=== PATIENT | male | born 1965 | race Caucasian/White ===

== ENCOUNTER 2021-06-12 19:58 | Inpatient (IN) | payer OTHER ==
[~2021-06-12] VITALS: Ht 175.3 cm; Wt 83.0 kg
--- NOTE | 2021-06-12 21:20 | NUR ---
c/o lt sided abd pain x 3am, denies n/v. patient in bed 11 on monitor and pox, awaiting md alegre. patient is ambulatory with non labored breathing.
--- NOTE | 2021-06-12 21:23 | NUR ---
URINE COLLECTED AND SENT TO LAB
--- NOTE | 2021-06-12 21:41 | NUR ---
RAC #20G S/L; PATENT AND INTACT. BLOOD COLLECTED AND SENT TO LAB
[2021-06-12 22:01] LABS: BASOPHILS # (AUTO) 0.1 K/uL (0.0-0.2); BASOPHILS % (AUTO) 0.4 % (0.0-2.0); EOSINOPHILS % (AUTO) 0.2 % (0.0-6.0); HEMATOCRIT 45 % (39-51); HEMOGLOBIN 15.2 g/dL (13.5-17.5); LYMPHOCYTES # (AUTO) 2.5 K/uL (0.8-4.8); LYMPHOCYTES % (AUTO) 11.7 % (20.0-44.0); MEAN CORPUSCULAR HGB CONC 34 g/dl (31.0-36.0); MEAN CORPUSCULAR VOLUME 87 fL (80-96); MONOCYTES # (AUTO) 2.4 K/uL (0.1-1.30); MONOCYTES % (AUTO) 11.1 % (2.0-12.0); NEUTROPHILS # (AUTO) 16.3 K/uL (1.8-8.9); NEUTROPHILS % (AUTO) 76.6 % (43.0-81.0); PLATELET COUNT (AUTO) 507 K/uL (150-450); RED BLOOD CELL COUNT(AUTO) 5.12 MIL/uL (4.5-6.0); WHITE BLOOD COUNT (AUTO) 21.3 K/uL (4.3-11.0)
[2021-06-12 22:10] LABS: CALCIUM, SERUM 9.6 mg/dL (8.5-10.1); CREATININE 1.8 mg/dL (0.6-1.3); POTASSIUM 3.6 mmol/L (3.5-5.1)
[2021-06-12 22:16] LABS: ALBUMIN 4.3 g/dL (3.4-5.0); BILIRUBIN,DIRECT 0.1 mg/dL (0.0-0.2); BILIRUBIN,TOTAL 0.7 mg/dL (0.2-1.0); TOTAL PROTEIN, SERUM 8.4 g/dL (6.4-8.2)
[2021-06-12 22:25] LABS: BILIRUBIN,URINE SMALL (NEGATIVE); COLOR,URINE YELLOW (YELLOW); LEUKOCYTE ESTERASE ,URINE NEGATIVE (NEGATIVE); NITRITE, URINE NEGATIVE (NEGATIVE); PROTEIN,URINE 30 mg/dl (NEGATIVE); UGLUCOSE NEGATIVE (NEGATIVE); UROBILINOGEN,URINE 0.2 EU/dL (0.2)
[2021-06-12] MEDS ORDERED: HYDROMORPHONE 1 MG/1 ML DISP.SYRIN ONE (22:27)
[2021-06-12] MEDS ORDERED: ONDANSETRON HCL/PF 4 MG/2 ML VIAL ONE (22:27)
[2021-06-12] MEDS ORDERED: HYDROMORPHONE 1 MG/1 ML DISP.SYRIN IV ONE (22:30)
[2021-06-12] MEDS ORDERED: ONDANSETRON HCL/PF - ER 4 MG/2 ML VIAL IV ONE (22:30)
[2021-06-12 22:46] LABS: RBC,URINE 0-2 /HPF (0-2)
[2021-06-12 22:47] LABS: BACTERIA,URINE Few /HPF (None Seen); MUCUS,URINE Many /LPF (None Seen); SQUAMOUS EPITHELIAL CELL,UR Few /HPF (None Seen)
--- NOTE | 2021-06-12 23:57 | NUR ---
COVID ANTIGEN SWAB COLLECTED AND SENT TO LAB
[2021-06-13] MEDS ORDERED: KETOROLAC TROMETHAMINE INJ 30 MG/ML VIAL IV ONE
--- NOTE | 2021-06-13 00:05 | NUR ---
CLINICALS RELAYED VERBALLY TO SKEIN INSPECTOR MIKEY.
[2021-06-13] MEDS ORDERED: KETOROLAC TROMETHAMINE INJ 30 MG/ML VIAL ONE (00:13)
[2021-06-13] MEDS ORDERED: ACETAMINOPHEN 325 MG TABLET PO PRN (00:30)
[2021-06-13] MEDS ORDERED: MAG HYDROX/AL HYDROX/SIMETH 30 ML UDC PO PRN (00:30)
[2021-06-13] MEDS ORDERED: LABETALOL 20 MG/4 ML VIAL IV PRN (00:30)
[2021-06-13] MEDS ORDERED: ONDANSETRON HCL/PF 4 MG/2 ML VIAL IVP PRN (00:30)
[2021-06-13] MEDS ORDERED: TAMSULOSIN 0.4 MG CAP.SR.24H PO ONE (00:30)
[2021-06-13] MEDS ORDERED: MORPHINE SULFATE INJ 2 MG/ML DISP.SYRIN IV PRN (00:30)
--- NOTE | 2021-06-13 01:44 | NUR ---
REPORT GIVEN TO KEN Stout RN FOR SHELBY
[2021-06-13] MEDS ORDERED: CEFEPIME 2 GM in IV D5W 100 ML IV ONE (02:00)
[2021-06-13] MEDS ORDERED: VANCOMYCIN 1 GM VIAL ONE (02:36)
[2021-06-13] MEDS ORDERED: TAMSULOSIN 0.4 MG CAP.SR.24H ONE (02:37)
[2021-06-13] MEDS: VANCOMYCIN 1 GM in IV D5W 250ml IV ONE ×2 (02:43→02:45)
--- NOTE | 2021-06-13 02:50 | NUR ---
PT TRANSFERRED TO 3W VIA ACLS PROTOCOL. VSS. ALL BELONGINGS WITH PT.
[2021-06-13 03:20] VITALS: BP 107/70
--- NOTE | 2021-06-13 03:20 | NUR ---
MS RN ADMITTING NOTES RECEIVED FROM ER VIA STRETCHER THIS MALE PATIENT WITH C/C OF NAUSEA AND VOMITING. PATIENT IS AWAKE, ALERT AND ORIENTED X 4, AMBULATORY. BREATHING IS EVEN AND NONLABORED. NO SIGNS AND SYMPTOMS OF RESPIRATORY DISTRESS. DENIES ANY PAIN, DISCOMFORT, NAUSEA AND VOMITING OF THIS TIME. ON ROOM AIR, WELL TOLERATED. WITH IV ACCESS ON RIGHT AC G#20; INTACT, PATENT AND SALINE LOCKED. SKIN CHECKED DONE; INTACT. INITIAL VS FOLLOWS: BP-107/70 MM HG, IA-70 BPM, RR-20 BREATHS PER MINUTE, TEMP- 98.9 DEGREES FAHRENHEIT, O2 SATURATION 93%. ABLE TO MAKE NEEDS KNOWN. ORIENTED TO THE ROOM AND UNIT. SAFETY MEASURES IMPLEMENTED: CALL LUNDY AND TABLE WITHIN EASY REACH, BED IN LOWEST LOCKED POSITION, SIDE RAILS UP X 2. WILL CONTINUE TO MONITOR
[2021-06-13 03:30] VITALS: BP 107/70
[2021-06-13] MEDS: IV NS 0.9% 1,000 ML IV SCH ×3 (03:51→16:10)
--- NOTE | 2021-06-13 07:00 | NUR ---
MS RN CLOSING NOTES PATIENT IS AWAKE, ALERT AND ORIENTED X 4. BREATHING IS EVEN AND NONLABORED. NO SIGNS AND SYMPTOMS OF RESPIRATORY DISTRESS. DENIES ANY PAIN, DISCOMFORT, NAUSEA AND VOMITING OF THIS MOMENT. ON ROOM AIR, WELL TOLERATED. WITH IV ACCESS ON RIGHT AC G#20 INFUSING WITH NS 1L AT 12 ML/HR; INTACT AND PATENT. NEEDS ATTENDED. SAFETY MEASURES IN PLACED: CALL LUNDY AND TABLE WITHIN EASY REACH, BED IN LOWEST LOCKED POSITION, SIDE RAILS UP X 2. ENDORSED TO MORNING SHIFT FOR CONTINUITY OF CARE.
--- NOTE | 2021-06-13 07:28 | NUR ---
MS RN OPENING NOTES RECEIVED PATIENT IN BED, AWAKE, A/O X4. PATIENT ON ROOM AIR; BREATHING EVEN AND UNLABORED. NO S/SX OF DISTRESS NOTED. NO COMPLAINS OF ACUTE PAIN AT THIS TIME. IV ACCESS ON RAC G # 20 WITH NS @125 MLS/HR. SAFETY PRECAUTIONS IN PLACE; BED IN LOW POSITION AND LOCKED, RAILS UP X2, CALL LIGHT WITHIN REACH. WILL CONTINUE TO MONITOR PATIENT.
[2021-06-13] MEDS: CEFEPIME 2 GM in IV D5W 100 ML IV SCH ×2 (07:47→20:18)
[2021-06-13] MEDS: HEPARIN SODIUM, PORCINE 5000 UNITS/1 ML VIAL SQ SCH ×2 (08:35→20:16)
[2021-06-13] MEDS ORDERED: VANCOMYCIN 1 GM in IV D5W 250 ML IV SCH (09:00)
--- NOTE | 2021-06-13 12:10 | NUR ---
MS RN NOTES PATIENT COMPLAINING OF PAIN 9 OUT OF 10 IN LEFT ABDOMINAL AND LEFT FLANK PAIN; REQUESTING PRN MEDICATION. PRN MORPHINE 2MG/1ML ADMINISTERED. WILL REASSESS.
[2021-06-13] MEDS: HYDROMORPHONE 1 MG/1 ML DISP.SYRIN IV PRN ×2 (14:46→19:59)
[2021-06-13] MEDS: VANCOMYCIN HCL 0.75 GM in IV D5W 250 ML IV SCH (14:48)
--- NOTE | 2021-06-13 14:53 | NUR ---
MS RN NOTES PATIENT COMPLAINING OF PAIN 9 OUT OF 10 IN LEFT ABDOMINAL AND LEFT FLANK PAIN; REQUESTING PRN MEDICATION. PRN DILAUDID ADMINISTERED PER MD ORDER.
--- NOTE | 2021-06-13 19:12 | NUR ---
MS RN CLOSING NOTES PATIENT REMAINS IN BED, AWAKE, A/O X4. PATIENT ON ROOM AIR; BREATHING EVEN AND UNLABORED. NO S/SX OF DISTRESS NOTED DURING THE DAY. PAIN TREATED WITH PRN PAIN MEDICATION PER MD ORDER. IV ACCESS ON RAC G # 20 WITH NS @125 MLS/HR. ALL NEEDS ATTENDED DURING THE DAY. SAFETY PRECAUTIONS IN PLACE; BED IN LOW POSITION AND LOCKED, RAILS UP X2, CALL LIGHT WITHIN REACH. WILL ENDORSE TO SPANISH LANGUAGE LECTURER NURSE FOR SHELBY.
--- NOTE | 2021-06-13 19:36 | NUR ---
RN OPENING NOTES RECEIVED PT IN BED, AWAKE. AOx4, ABLE TO MAKE NEEDS KNOWN. ON RA AND TOLERATING WELL. NO SOB NOTED. NO S/SX OF RESPIRATORY DISTRESS NOTED. IV ACCESS IN RAC #20G RUNNING NS @ 125 ML/HR. STATES [id number] PAIN AT THIS MOMENT. SAFETY PRECAUTIONS IN PLACE: BED IN LOWEST, LOCKED POSITION, SIDERAILS UPx2, AND BRAKES ON. TABLE AND CALL LIGHT WITHIN REACH. WILL CONTINUE TO MONITOR.
--- NOTE | 2021-06-13 19:59 | NUR ---
ADMINISTERED DILAUDID FOR PAIN PER MD ORDER. VS WNL. WILL CONTINUE TO MONITOR.
[2021-06-13] MEDS: KETOROLAC TROMETHAMINE INJ 30 MG/ML VIAL IV SCH (21:44)
--- NOTE | 2021-06-13 21:48 | NUR ---
ADMINISTERED TORADOL SCHEDULED PER . VS WNL. EDUCATED PT ON MEDICATION AND POSSIBLE SIDE EFFECTS. WILL CONTINUE TO MONITOR.
[2021-06-14] MEDS: IV NS 0.9% 1,000 ML IV SCH ×2 (00:08→07:53)
[2021-06-14] MEDS: KETOROLAC TROMETHAMINE INJ 30 MG/ML VIAL IV SCH ×3 (02:41→15:14)
[2021-06-14] MEDS: VANCOMYCIN HCL 0.75 GM in IV D5W 250 ML IV SCH ×2 (02:41→16:40)
[2021-06-14 06:42] LABS: BASOPHILS % (AUTO) 0.3 % (0.0-2.0); EOSINOPHILS % (AUTO) 1.4 % (0.0-6.0); HEMATOCRIT 38 % (39-51); HEMOGLOBIN 12.8 g/dL (13.5-17.5); LYMPHOCYTES # (AUTO) 1.9 K/uL (0.8-4.8); MEAN CORPUSCULAR HGB CONC 33 g/dl (31.0-36.0); MEAN CORPUSCULAR VOLUME 87 fL (80-96); MONOCYTES # (AUTO) 1.2 K/uL (0.1-1.30); MONOCYTES % (AUTO) 10.5 % (2.0-12.0); NEUTROPHILS # (AUTO) 8.4 K/uL (1.8-8.9); NEUTROPHILS % (AUTO) 71.8 % (43.0-81.0); PLATELET COUNT (AUTO) 394 K/uL (150-450); WHITE BLOOD COUNT (AUTO) 11.7 K/uL (4.3-11.0)
[2021-06-14] MEDS: HYDROMORPHONE 1 MG/1 ML DISP.SYRIN IV PRN ×2 (06:57→14:51)
--- NOTE | 2021-06-14 06:59 | NUR ---
ADMINISTERED DILAUDID FOR PAIN PER MD ORDER. VS WNL. WILL CONTINUE TO MONITOR.
--- NOTE | 2021-06-14 07:04 | NUR ---
RN CLOSING NOTES PT IN BED, AWAKE. AOx4, ABLE TO MAKE NEEDS KNOWN. ON RA AND TOLERATING WELL. NO SOB NOTED. NO S/SX OF RESPIRATORY DISTRESS NOTED. IV ACCESS IN L HAND #22G RUNNING NS @ 125 ML/HR. ALL NEEDS MET. PT KEPT CLEAN AND DRY. TREATED PAIN THROUGHOUT SHIFT. SAFETY PRECAUTIONS IN PLACE: BED IN LOWEST, LOCKED POSITION, SIDERAILS UPx2, AND BRAKES ON. TABLE AND CALL LIGHT WITHIN REACH. WILL ENDORSE TO ONCOMING SHIFT FOR SHELBY.
[2021-06-14 07:27] LABS: ALBUMIN 3.5 g/dL (3.4-5.0); BILIRUBIN,TOTAL 0.6 mg/dL (0.2-1.0); CALCIUM, SERUM 8.9 mg/dL (8.5-10.1); CREATININE 1.4 mg/dL (0.6-1.3); MAGNESIUM 2.1 mg/dL (1.8-2.4); PHOSPHORUS 3.4 mg/dL (2.5-4.9); POTASSIUM 3.9 mmol/L (3.5-5.1)
[2021-06-14] MEDS: CEFEPIME 2 GM in IV D5W 100 ML IV SCH (07:53)
[2021-06-14 08:00] VITALS: BP 122/76
[2021-06-14] MEDS: HEPARIN SODIUM, PORCINE 5000 UNITS/1 ML VIAL SQ SCH (08:59)
[2021-06-14] MEDS ORDERED: IV NS 0.9% 1,000 ML IV PRN (10:06)
[2021-06-14 16:00] VITALS: BP 141/72
--- NOTE | 2021-06-14 17:30 | NUR ---
TRACTOR OPERATOR NOTE PT WAS DISCHARGED WITH STABLE VITALS. PT A/O X4. NO S/SX OF ACUTE DISTRESS NOTED. BREATHING IS EVEN AND UNLABORED. IV LEFT IN PLACE;D BAND REMOVED. ALL DC INSTRUCTIONS REVIEWED WITH PATIENT; PT VERBALIZED UNDERSTANDING. ALL QUESTIONS ANSWERED. PT SIGNED BELONGINGS FORM; PT WAS PICKED UP BY AMBULANCE TO [facility]. PT EXITED UNIT AT THIS TIME. REPORT GIVEN TO SUSI VALENTIN AT [facility].
== END 2021-06-14 18:10 | disposition short-term general hospital (02) | DRG 465 ==
LOC: ER 20:01 → MED 06-13 01:27
PROVIDERS: ADMIT Nurse Practitioner Family; ATTEND Nurse Practitioner Family
DX: N13.2 Hydronephrosis with renal and ureteral calculous obstruction (principal); N17.0 Acute kidney failure with tubular necrosis; R65.10 Systemic inflammatory response syndrome (SIRS) of non-infectious origin without acute organ dysfunction; E87.1 Hypo-osmolality and hyponatremia; N13.9 Obstructive and reflux uropathy, unspecified; Z72.0 Tobacco use; Z20.822 Contact with and (suspected) exposure to COVID-19; R73.9 Hyperglycemia, unspecified; D72.829 Elevated white blood cell count, unspecified; F12.90 Cannabis use, unspecified, uncomplicated; E86.1 Hypovolemia; I70.0 Atherosclerosis of aorta; K40.90 Unilateral inguinal hernia, without obstruction or gangrene, not specified as recurrent; Z80.3 Family history of malignant neoplasm of breast
CPT/HCPCS: 36415; 80048-TC; 80053-TC; 80076-TC; 80202-TC; 81001; 83605-TC; 83690-TC; 83735-TC; 84100-TC; 85025-TC; 87040-TC; 87081-TC; C9803; G0378; J0692; J1170; J1644; J1885; J2270; J2405; J3370; J7030; J7060

== ENCOUNTER 2022-02-23 14:45 | Emergency (ER) | payer OTHER ==
[~2022-02-23] VITALS: Ht 175.3 cm; Wt 88.5 kg
[2022-02-23 15:54] VITALS: BP 128/97
[2022-02-23] MEDS ORDERED: KETOROLAC TROMETHAMINE INJ 60 MG/2 ML VIAL IM ONE (16:30)
[2022-02-23] MEDS ORDERED: KETOROLAC TROMETHAMINE INJ 30 MG/ML VIAL ONE (16:42)
--- NOTE | 2022-02-23 17:05 | NUR ---
SEEN AND EXAMINED BY DR ELLIS, MEDICATED ORDERED. PROVIDED W/ SHOULDER XRAY REPORT. DISCHARGED HOME IN STABLE CONDITION.
== END 2022-02-23 17:07 | disposition home or self-care (01) ==
LOC: ER 14:49
DX: M25.511 Pain in right shoulder (principal); F17.200 Nicotine dependence, unspecified, uncomplicated
CPT/HCPCS: 99283; 96372; 73030; J1885

== ENCOUNTER 2023-07-31 00:53 | Emergency (ER) | payer OTHER ==
[~2023-07-31] VITALS: Ht 175.3 cm; Wt 86.2 kg
[2023-07-31 01:53] VITALS: BP 110/91; TEMP 98.4; O2SAT 99
[2023-07-31] MEDS ORDERED: CYCLOBENZAPRINE 10 MG TABLET ONE (02:06)
[2023-07-31] MEDS ORDERED: KETOROLAC TROMETHAMINE INJ 30 MG/ML VIAL ONE (02:06)
[2023-07-31] MEDS: CYCLOBENZAPRINE 10 MG TABLET PO ONE (02:09)
[2023-07-31] MEDS: KETOROLAC TROMETHAMINE INJ 60 MG/2 ML VIAL IM ONE (02:09)
[2023-07-31] MEDS ORDERED: CYCL5TAB PO (02:15)
[2023-07-31] MEDS ORDERED: HYDR-3980 PO (13:46)
== END 2023-07-31 02:31 | disposition home or self-care (01) ==
LOC: ER 00:57
DX: M54.50 Low back pain, unspecified (principal); M79.605 Pain in left leg; F17.200 Nicotine dependence, unspecified, uncomplicated
CPT/HCPCS: 99283; 96372; J1885

== ENCOUNTER 2023-07-31 11:24 | Emergency (ER) | payer OTHER ==
[~2023-07-31] VITALS: Ht 175.3 cm; Wt 86.2 kg
[~2023-07-31 11:24] MED LIST: CYCL5TAB PO
[2023-07-31] MEDS: IV NS 0.9% 1,000 ML BAG IV ONE (12:54)
[2023-07-31] MEDS ORDERED: KETOROLAC TROMETHAMINE INJ 30 MG/ML VIAL ONE (13:05)
[2023-07-31 13:11] LABS: CALCIUM, SERUM 10.1 mg/dL (8.5-10.1); CREATININE 0.9 mg/dL (0.6-1.3); POTASSIUM 4.2 mmol/L (3.5-5.1)
[2023-07-31] MEDS: KETOROLAC TROMETHAMINE 15 MG/ML VIAL IV ONE (13:12)
[2023-07-31 13:19] LABS: ALBUMIN 4.1 g/dL (3.4-5.0); BILIRUBIN,DIRECT 0.1 mg/dL (0.0-0.2); BILIRUBIN,TOTAL 0.6 mg/dL (0.2-1.0); TOTAL PROTEIN, SERUM 8.2 g/dL (6.4-8.2)
[2023-07-31 13:23] LABS: BASOPHILS # (AUTO) 0.1 K/uL (0.0-0.2); EOSINOPHILS # (AUTO) 0.2 K/uL (0.0-0.7); HEMATOCRIT 44 % (39-51); HEMOGLOBIN 15.1 g/dL (13.5-17.5); LYMPHOCYTES # (AUTO) 1.8 K/uL (0.8-4.8); LYMPHOCYTES % (AUTO) 20.6 % (20.0-44.0); MEAN CORPUSCULAR HEMOGLOBIN 30 PG (26.0-33.0); MEAN CORPUSCULAR HGB CONC 34 g/dl (31.0-36.0); MEAN CORPUSCULAR VOLUME 87 fL (80-96); MONOCYTES # (AUTO) 0.6 K/uL (0.1-1.30); NEUTROPHILS # (AUTO) 6.2 K/uL (1.8-8.9); NEUTROPHILS % (AUTO) 69.4 % (43.0-81.0); PLATELET COUNT (AUTO) 402 K/uL (150-450); RED BLOOD CELL COUNT(AUTO) 5.03 MIL/uL (4.5-6.0); RED CELL DISTRIBUTION WIDTH 13.6 % (11.5-15.0); WHITE BLOOD COUNT (AUTO) 8.9 K/uL (4.3-11.0)
[2023-07-31 13:33] LABS: APPEARANCE,URINE CLEAR (CLEAR); BILIRUBIN,URINE NEGATIVE (NEGATIVE); BLOOD, URINE 2+ Ery/uL (NEGATIVE); COLOR,URINE YELLOW (YELLOW); KETONES,URINE NEGATIVE (NEGATIVE); LEUKOCYTE ESTERASE ,URINE NEGATIVE (NEGATIVE); NITRITE, URINE NEGATIVE (NEGATIVE); PROTEIN,URINE NEGATIVE (NEGATIVE); UGLUCOSE NEGATIVE (NEGATIVE); UROBILINOGEN,URINE 0.2 EU/dL (0.2)
[2023-07-31 13:40] LABS: ADD URINE CULTURE NO; BACTERIA,URINE Rare /HPF (None Seen); SQUAMOUS EPITHELIAL CELL,UR Few /HPF (None Seen); WBC,URINE 0-2 /HPF (0-3)
[2023-07-31] MEDS ORDERED: HYDR-3980 PO (13:46)
[2023-07-31] MEDS ORDERED: HYDROCODONE/APAP 5/325MG TABLET ONE (13:59)
[2023-07-31] MEDS: HYDROCODONE/APAP 5/325MG TABLET PO ONE (14:02)
[2023-07-31 15:00] VITALS: BP 146/94; TEMP 98.2; O2SAT 100
== END 2023-07-31 15:00 | disposition home or self-care (01) ==
LOC: ER 11:46
DX: M54.50 Low back pain, unspecified (principal); R10.32 Left lower quadrant pain; F17.200 Nicotine dependence, unspecified, uncomplicated
CPT/HCPCS: 99285; 74176; 96374; 96361; 85025; 80048; 83690; 80076; 81001; 36415; J1885; J7030

== ENCOUNTER 2023-08-17 02:46 | Emergency (ER) | payer OTHER ==
[~2023-08-17] VITALS: Ht 175.3 cm; Wt 81.6 kg
[~2023-08-17 02:46] MED LIST changes: +HYDR-3980 PO
[2023-08-17] MEDS ORDERED: MORPHINE SULFATE INJ 2 MG/ML DISP.SYRIN IM ONE (04:30)
[2023-08-17] MEDS ORDERED: ONDANSETRON 4 MG TAB.RAPDIS PO ONE (04:30)
[2023-08-17 04:36] VITALS: BP 125/89; TEMP 98.5; O2SAT 98
== END 2023-08-17 04:36 | disposition home or self-care (01) ==
LOC: ER 02:47
DX: M54.32 Sciatica, left side (principal); F17.200 Nicotine dependence, unspecified, uncomplicated
CPT/HCPCS: 99284; 96374; 96375; J2270; Q0162